=== PATIENT | female | born 1965 | race Caucasian/White ===

== ENCOUNTER 2018-02-05 14:15 | Inpatient (IN) | payer OTHER ==
[~2018-02-05] VITALS: Ht 162.6 cm; Wt 78.0 kg
[2018-02-05] MEDS ORDERED: LOSARTAN POTASS50 MG PO (14:41)
[2018-02-05] MEDS ORDERED: ASPIR 8181 MG PO (14:42)
[2018-02-05] MEDS ORDERED: SYNTHROID88 MCG PO (14:42)
[2018-02-13] MEDS ORDERED: PERCOCET 5-3251 EACH PO (09:58)
== END 2018-02-13 15:18 | disposition home or self-care (01) | DRG 627 ==
LOC: O/R 02-12 05:33 → SURG 02-12 05:33 → SURH 02-12 07:00 → SURG 02-12 10:17 → SURH 02-12 14:15 → SURG 02-13 15:18
PROVIDERS: Surgery
PROC: 0GTK0ZZ Resection of Thyroid Gland, Open Approach (ICD-10-PCS; principal; 2018-02-12 07:00)
DX: E04.2 Nontoxic multinodular goiter (principal); I11.9 Hypertensive heart disease without heart failure